=== PATIENT | female | born 1950 | race Caucasian/White ===

== ENCOUNTER → 2016-09-29 | Outpatient (CLI) | payer BC ==
--- NOTE | 2016-09-29 11:30 | DIAGNOSTIC IMAGING REPORT ---
C-SPINE ROUTINE 4 OR 5 VIEWS CLINICAL HISTORY: Neck pain COMPARISON STUDY: No previous studies for comparison. FINDINGS: There is a slight reversal of the normal cervical lordosis. There is minimal retrolisthesis of C4 on C5. This is felt to be degenerative. There are degenerative changes most pronounced the C4-5, and C5-6 levels. The bony neural foramen appear patent bilaterally. No destructive lesions are evident. IMPRESSION: Degenerative changes most pronounced the C3-4-5 and C5-C6 levels. No fractures or traumatic subluxations are visualized. Electronically signed by: Urbano Brandon M.D. 09/29/2016 11:29 AM Dictated Date/Time: 09/29/2016 11:24 AM
== END | disposition home or self-care (01) ==
LOC: C.RAD 11:00
PROVIDERS: ATTEND Family Medicine
DX: M50.321 Other cervical disc degeneration at C4-C5 level (principal); M50.322 Other cervical disc degeneration at C5-C6 level

== ENCOUNTER → 2016-11-11 | Outpatient (CLI) | payer BC ==
[~2016-11-11] MED LIST: GADAVIST IV PRN
--- NOTE | 2016-11-11 08:54 | DIAGNOSTIC IMAGING REPORT ---
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 TECHNIQUE: Utilizing a 1.5 Enedina magnet and dedicated coil, multiplanar, multiecho imaging of the brain was performed pre and postcontrast administration. IV administration of 8 mL of Gadavist contrast was uneventful. FINDINGS: Several small punctate foci of increased signal within the periventricular and subcortical regions of the parietal convexities. These measure no more than 4 mm. No significant increased foci involving the optic radiations. No significant postcontrast enhancement. Ventricular system is midline. Internal artery canals are symmetric. Sella and parasellar region are unremarkable. IMPRESSION: Several nonspecific punctate foci of increased signal within the subcortical regions of the parietal convexities as well as periventricular regions. 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 11/11/2016 8:52 AM Dictated Date/Time: 11/11/2016 8:47 AM
--- NOTE | 2016-11-11 09:06 | DIAGNOSTIC IMAGING REPORT ---
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 Hypertension. Facial paresthesia TECHNIQUE: Sagittal and axial T1, T2 and STIR images were obtained. Imaging was performed before and after the administration of 6 cc of intravenous Gadavist COMPARISON STUDY: Conventional radiographic study of the cervical spine dated 09/29/2016 There are no suspicious areas of marrow replacement. No intrinsic cervical cord lesions are visualized. C2-3: There is no evidence of disc bulge or focal herniation. There is no spinal or foraminal stenosis. C3-4: There is no evidence of disc bulge or focal herniation. There is no spinal or foraminal stenosis. C4-5: There is disc desiccation. There is a minimal disc bulge. There is mild uncovertebral joint spurring. There is no significant spinal or foraminal stenosis. C5-6 :There is disc desiccation. There is mild uncovertebral joint spurring. There is minimal left-sided foraminal encroachment. There is no significant spinal stenosis. C6-7: There is a minimal disc bulge. There is no significant spinal or foraminal stenosis. C7-T1: There is no evidence of disc bulge or focal herniation. There is no evidence of spinal or foraminal stenosis. Postcontrast images reveal no evidence of pathologic enhancement IMPRESSION: 1. Mild degenerative change. No significant spinal stenosis. Minimal left-sided foraminal narrowing C5-6 level. 2. No cord lesions are visualized. Electronically signed by: Urbano Brandon M.D. 11/11/2016 9:04 AM Dictated Date/Time: 11/11/2016 8:59 AM
== END | disposition home or self-care (01) ==
LOC: C.MRIBC 06:45
PROVIDERS: ATTEND Family Medicine
DX: A69.22 Other neurologic disorders in Lyme disease (principal); I11.0 Hypertensive heart disease with heart failure

== ENCOUNTER → 2017-02-27 | Outpatient (CLI) | payer BC ==
--- NOTE | 2017-02-27 08:57 | DIAGNOSTIC IMAGING REPORT ---
(BARIUM SWALLOW) ESOPHAGUS CLINICAL HISTORY: 66 years-old Female presenting with KALTAG BORRELIOSIS. TECHNIQUE: A standard air contrast barium esophagram is performed. Multiple spot images of the esophagus are acquired both upright and prone. COMPARISON: None. FINDINGS: The patient was able to ingest barium. Normal mucosal pattern. No evidence of intrinsic or extrinsic mass lesion. No aspiration observed. The gastroesophageal junction distended normally. Gastroesophageal reflux observed. The barium pill was administered and passed without difficulty. Fluoroscopy time: 1.2 minutes. Fluoroscopic images: 27. IMPRESSION: Gastroesophageal reflux. Electronically signed by: Miguel A Pappas M.D. 02/27/2017 8:56 AM Dictated Date/Time: 02/27/2017 8:54 AM
== END | disposition home or self-care (01) ==
LOC: C.RAD 08:14
PROVIDERS: ATTEND Family Medicine
DX: K21.9 Gastro-esophageal reflux disease without esophagitis (principal); A69.20 Lyme disease, unspecified

== ENCOUNTER → 2017-12-03 | Outpatient (CLI) | payer OTHER | LOC: C.MAMM 11:24 | PROVIDERS: ATTEND Nurse Practitioner | DX: M81.0 Age-related osteoporosis without current pathological fracture (principal); M85.851 Other specified disorders of bone density and structure, right thigh; M85.852 Other specified disorders of bone density and structure, left thigh ==